=== PATIENT | female | born 1950 | race Caucasian/White ===

== ENCOUNTER 2018-11-29 21:53 | Emergency (ER) | payer MEDICARE, OTHER ==
--- NOTE | 2018-11-29 22:04 | ED Physician Documentation ---
General Adult - HISTORIAN Historian: patient - HPI Stated Complaint: diarrhea and low b/p Chief Complaint: General Adult Onset: days ago (2) Timing: still present Severity: mild Further Comments: yes (Per skilled nursing she has refused meds x 2 weeks and food/fluids. She states two days ago she started to have diarrhea. The sister states the did have her on comfort measures until they state they felt she was uncomfortable and they wanted her checked. Discussed with son (POA) and sister what their goal for care is today. They want an overall evaluation and they are worried she is uncomforable. No fever. No other complaints. She has dementia) Last known Well Code/Unknown Code: Unknown - ROS CONST: weakness (diarrhea - pt has dementia and is unresponsive ) MS/SKIN/LYMPH: denies: rash NEURO/PSYCH: other (end stage dementia ) - PAST HX Past History: hypertension, other (PTSD, anxiety ) Allergies/Adverse Reactions: Allergies Allergy/AdvReac Type Severity Reaction Status Date / Time No Known Allergies Allergy Verified 11/29/18 22:14 - SOCIAL HX Smoking History: non-smoker Alcohol Use: none Drug Use: none - FAMILY HX Family History: No - REVIEWED ASSESSMENTS Nursing Assessment Reviewed: Yes Vitals Reviewed: Yes Progress - Progress Progress: 0010: discussed results and plan with sister and son. They are agreeable they want Hospice to help pt. Her labs were discussed. They do not wish intervention. She is not taking oral meds currently. They are aware to ask for increased Ativan SL if she appears anxious. DG General Adult Physical Exam - PHYSICAL EXAM GENERAL APPEARANCE: mild distress EENT: eye inspection normal, dry mucous membranes NECK: normal inspection RESPIRATORY: no resp distress, chest non-tender, breath sounds normal CVS: reg rate & rhythm, heart sounds normal ABDOMEN: soft, normal bowel sounds, no distension BACK: normal inspection SKIN: warm/dry, mottled (lower legs bilateral ), other (dry skin large bruise left upper arm ) EXTREMITIES: non-tender, normal range of motion, no edema NEURO: other (awake - no response ) Discharge Clincal Impression: Dehydration Referrals: Cong Singh MD [Primary Care Provider] - 2 Days Comments: Sister and son do not wish to have the elevated labs further investigated Condition: Poor Disposition: 01 HOME, SELF-CARE Decision to Admit: NO Date of Decison to Admit: 11/30/18 Decision Time: 00:25
[2018-11-29 23:09] LABS: eGFR (Non-African) 5
[2018-11-29 23:33] LABS: SEGMENTED NEUTROPHILS % 78 % (39-79)
[2018-11-29 23:34] LABS: EOSINOPHILS % 2 % (0-7); MONOCYTES % 5 % (0-11); PLT EST. EST. AGREES W/PLT CT
[2018-11-29] MEDS ORDERED: LORazepam 2 MG/ML VIAL IVP ONE (23:37)
[2018-11-29 23:53] VITALS: BP 108/76
== END 2018-11-30 01:30 | disposition home or self-care (01) ==
LOC: ED 21:53
DX: E86.0 Dehydration (principal)
CPT/HCPCS: 36415; 80053; 85025; 96374; 99282; 99284; J2060